=== PATIENT | female | born 1955 | race Caucasian/White ===

== ENCOUNTER → 2017-03-18 | Outpatient (CLI) | payer MEDICARE, OTHER ==
[~2017-03-18] MED LIST: CYCL-331 PO; ESOM40CA25 PO; ESTR2TAB4 PO; LEVO5TAB29 PO; MELO15TA6 PO; PRAZ2CAP PO; SERT25TA PO
[2017-03-18 13:49] LABS: BASO % 0 % (0-3); EOS # 0.1 x10^3/uL (0.0-0.7); EOS % 1 % (0-3); HEMATOCRIT 43.2 % (36.0-47.0); HEMOGLOBIN 14.6 g/dL (12.0-15.5); LYMPH # 3.8 x10^3/uL (1.0-4.8); LYMPH % 40 % (24-48); MEAN CORPUSCULAR HEMOGLOBIN 33 pg (25-35); MEAN CORPUSCULAR HGB CONC 34 g/dL (31-37); MEAN CORPUSCULAR VOLUME 98 fL (79-100); MONO # 0.4 x10^3/uL (0.0-1.1); MONO % 4 % (0-9); NEUT # 5.3 x10^3uL (1.8-7.7); NEUT % 55 % (31-73); PLATELET COUNT 180 x10^3/uL (140-400); RED BLOOD COUNT 4.41 x10^6/uL (3.50-5.40); RED CELL DISTRIBUTION WIDTH 12.6 % (11.5-14.5); WHITE BLOOD COUNT 9.6 x10^3/uL (4.0-11.0)
== END | disposition home or self-care (01) ==
LOC: LAB 12:33
PROVIDERS: ATTEND Anesthesiology Pain Medicine
DX: Z01.818 Encounter for other preprocedural examination (principal)
CPT/HCPCS: 36415; 85027

== ENCOUNTER → 2017-06-30 | Outpatient (CLI) | payer MEDICARE, OTHER ==
--- NOTE | 2017-06-30 11:30 | RAD ---
Exam performed:3 views bilateral shoulder a Indication:Bilateral shoulder pain, greater on the right, no known injury Date of service:06/30/17. Comparison:None available Findings :AP radiographs of the shoulder in internal and external rotation as well as a Y-view reveal degenerative changes involving bilateral acromioclavicular joints. The glenohumeral joints are preserved. No acute fracture or dislocation is seen. The articular margins are smooth. 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 No acute abnormality seen.
--- NOTE | 2017-06-30 11:31 | RAD ---
Indication sacral pain for several months. No known injury. 2 AP views of the sacrococcyx were obtained. A lateral view was also obtained. There is suspect bony demineralization. No definite fracture is seen. If further evaluation for potential occult fracture is warranted an MRI examination or bone scan could be performed.
== END | disposition home or self-care (01) ==
LOC: DXRADRC 10:59
PROVIDERS: ATTEND Physician Assistant Medical
DX: M19.011 Primary osteoarthritis, right shoulder (principal); M19.012 Primary osteoarthritis, left shoulder; M53.3 Sacrococcygeal disorders, not elsewhere classified
CPT/HCPCS: 72220; 73030

== ENCOUNTER → 2018-12-31 | Outpatient (CLI) | payer MEDICARE, OTHER ==
--- NOTE | 2018-12-31 09:46 | RAD ---
PQRS Compliance Statement: One or more of the following individualized dose reduction techniques were utilized for this examination: 1. Automated exposure control 2. Adjustment of the mA and/or kV according to patient size 3. Use of iterative reconstruction technique EXAMINATION: CT of the paranasal sinuses without contrast 12/31/2018 8:03 AM HISTORY: Sinus pressure with congestion and history of surgery. TECHNIQUE: CT of the paranasal sinuses was performed using sinus protocol without contrast COMPARISON: None available FINDINGS: Review of the topogram demonstrates no abnormalities. Postoperative changes are identified from maxillary decompression. There is a small mucus retention cyst in the left maxillary sinus The frontal sinuses are normal. The ethmoid sinuses are normal. The sphenoid sinuses are normal. Nasal septum is minimally deviated to the left. The nasal septum is at midline. No areas of bony erosion are identified. The orbits are normal. Limited view of the frontal lobes is normal. IMPRESSION: Postoperative changes are identified from maxillary decompression. There is a small mucus retention cyst in the left maxillary sinus. Electronically signed by: Soo Topete MD (12/31/2018 9:43 AM) [id number]
== END | disposition home or self-care (01) ==
LOC: CT 07:54
PROVIDERS: ATTEND Registered Nurse
DX: J34.1 Cyst and mucocele of nose and nasal sinus (principal)
CPT/HCPCS: 70486

== ENCOUNTER → 2019-06-15 | Outpatient (CLI) | payer MEDICARE, OTHER ==
--- NOTE | 2019-06-15 15:45 | RAD ---
EXAM: Chest, 2 views. HISTORY: Chronic cough. COMPARISON: 12/04/2014 FINDINGS: 2 views of the chest are obtained. There is no infiltrate, pleural effusion or pneumothorax. The heart is normal in size. There are dorsal column stimulator leads overlying the thoracic spine. There is cervical spinal fusion instrumentation. IMPRESSION: No acute pulmonary finding. Electronically signed by: Marie Morris MD (06/15/2019 3:42 PM) [place] [id number]
--- NOTE | 2019-06-15 15:54 | RAD ---
EXAM: Cervical spine, 5 views. HISTORY: Pain. COMPARISON: None. FINDINGS: 5 views of the cervical spine are obtained. There is instrumented intraspinal fusion and interbody fusion at C5-C7. There is no listhesis. The vertebral bodies are normal in height. There is anterior inferior endplate remodeling at C3-4. There is mild facet arthropathy at multiple levels. There is partial visualization of a dorsal column stimulator overlying the upper thoracic spine. IMPRESSION: 1. Instrumented fusion at C5-C7. 2. Mild multilevel degenerative change, described above. Electronically signed by: Marie Morris MD (06/15/2019 3:51 PM) [place] [id number]
== END | disposition home or self-care (01) ==
LOC: DXRAD 12:45
PROVIDERS: ATTEND Physician Assistant Medical
DX: M47.812 Spondylosis without myelopathy or radiculopathy, cervical region (principal); M46.82 Other specified inflammatory spondylopathies, cervical region; R05 Cough; Z98.1 Arthrodesis status
CPT/HCPCS: 71046; 72050

== ENCOUNTER → 2019-08-03 | Outpatient (CLI) | payer MEDICARE, OTHER ==
[~2019-08-03] MED LIST changes: +IOHEXOL 240 MG/ML 50ML VIAL. ONE; +IOHEXOL 300 MG/ML 75 ML VIAL. IV ONE
--- NOTE | 2019-08-03 15:35 | RAD ---
Examination: CT ABD PELV W/ORAL IV CONTRAST History: Right lower quadrant pain, diarrhea Comparison/Correlation: 10/10/2014 CT abdomen and pelvis without with contrast Findings: Axial images of the abdomen and pelvis were obtained following IV and oral contrast. Sagittal and coronal reformatted images were provided. Mild gravity dependent atelectasis is present. Cholecystectomy noted. Liver, spleen, pancreas, and right adrenal gland are normal. Left adrenal gland 1.1 cm diameter nodule is present similar to the prior exam. Kidneys unremarkable. Urinary bladder is unremarkable. Moderate quantity of stool in the colon noted. No extraluminal gas. No bowel obstruction. No inflammatory change about the cecum. No inflammatory change about the cecum. Hysterectomy noted. Spinal stimulator device is present with associated lead. No acute bony process. Impression: No acute inflammatory process or mass. No obstruction. PQRS Compliance Statement: One or more of the following individualized dose reduction techniques were utilized for this examination: 1. Automated exposure control 2. Adjustment of the mA and/or kV according to patient size 3. Use of iterative reconstruction technique Electronically signed by: Mark Anderson MD (08/03/2019 3:31 PM) [facility]
== END | disposition home or self-care (01) ==
LOC: CT 11:52
PROVIDERS: ATTEND Physician Assistant Medical
DX: E27.8 Other specified disorders of adrenal gland (principal); J98.11 Atelectasis; Z90.49 Acquired absence of other specified parts of digestive tract; Z90.710 Acquired absence of both cervix and uterus
CPT/HCPCS: 74177; Q9967

== ENCOUNTER → 2019-09-08 | Outpatient (CLI) | payer MEDICARE, OTHER ==
[~2019-09-08] MED LIST changes: -IOHEXOL 240 MG/ML 50ML VIAL. ONE; -IOHEXOL 300 MG/ML 75 ML VIAL. IV ONE
--- NOTE | 2019-09-08 14:53 | RAD ---
SMALL BOWEL SERIES History: Right lower quadrant abdominal pain Comparison: August 03, 2019 CT exam Findings: Small bowel examination was performed. There has been cholecystectomy. There are thoracic spinal stimulator leads and device. There is a nonobstructive bowel gas pattern. There was fairly rapid transit of contrast through the small bowel, seen in the ascending colon at about 20 minutes. No significant flow-limiting stricture is identified. Overall small bowel caliber is within normal limits. Impression: 1. There was nonspecific fairly rapid transit of contrast through the small bowel, seen in the ascending colon at 20 minutes. Electronically signed by: Estiven Pinedo MD (09/08/2019 2:51 PM) [id number]
== END | disposition home or self-care (01) ==
LOC: RAD 08:19
PROVIDERS: ATTEND Internal Medicine Gastroenterology
DX: R10.31 Right lower quadrant pain (principal)
CPT/HCPCS: 74250

== ENCOUNTER → 2019-10-31 | Outpatient (CLI) | payer MEDICARE, OTHER ==
[2019-10-31 09:01] LABS: BASO % 0 % (0-3); EOS # 0.1 x10^3/uL (0.0-0.7); EOS % 2 % (0-3); HEMATOCRIT 48.4 % (36.0-47.0); LYMPH # 2.5 x10^3/uL (1.0-4.8); LYMPH % 42 % (24-48); MEAN CORPUSCULAR HEMOGLOBIN 33 pg (25-35); MEAN CORPUSCULAR HGB CONC 33 g/dL (31-37); MEAN CORPUSCULAR VOLUME 101 fL (79-100); MONO # 0.3 x10^3/uL (0.0-1.1); MONO % 6 % (0-9); NEUT % 50 % (31-73); PLATELET COUNT 235 x10^3/uL (140-400); RED BLOOD COUNT 4.81 x10^6/uL (3.50-5.40); RED CELL DISTRIBUTION WIDTH 12.8 % (11.5-14.5)
[2019-10-31 09:14] LABS: ALBUMIN 3.8 g/dL (3.4-5.0); CALCIUM 8.5 mg/dL (8.5-10.1); GFR 56.2; POTASSIUM 3.9 mmol/L (3.5-5.1); TOTAL BILIRUBIN 0.3 mg/dL (0.2-1.0); TOTAL PROTEIN 7.6 g/dL (6.4-8.2)
== END | disposition home or self-care (01) ==
LOC: LAB 07:51
PROVIDERS: ATTEND Clinical Nurse Specialist Psychiatric/Mental Health, Adult
DX: Z79.899 Other long term (current) drug therapy (principal)
CPT/HCPCS: 36415; 80053; 85025

== ENCOUNTER → 2019-10-31 | Outpatient (CLI) | payer MEDICARE, OTHER ==
--- NOTE | 2019-10-31 08:25 | EKG ---
[address] [address] Test Date: 2019-10-31 Test Time: 08:14:04 Pat Name: TANYA TRIPP Department: Room: Gender: F Ambulatory Care Coordinator: : 1955 Requested By: MAHIN PLASENCIA Order Number: [id number] Reading MD: Measurements Intervals [place] Rate: 73 P: 34 IA: 148 QRS: 8 QRSD: 80 T: 20 QT: 402 QTc: 447 Interpretive Statements SINUS RHYTHM QRS(T) CONTOUR ABNORMALITY CONSIDER ANTEROLATERAL MYOCARDIAL DAMAGE POSSIBLY ABNORMAL ECG RI6.01 No previous ECG available for comparison
[2019-10-31 09:03] LABS: BASO % 0 % (0-3); EOS # 0.1 x10^3/uL (0.0-0.7); EOS % 2 % (0-3); HEMATOCRIT 48.4 % (36.0-47.0); LYMPH # 2.5 x10^3/uL (1.0-4.8); LYMPH % 42 % (24-48); MEAN CORPUSCULAR HEMOGLOBIN 33 pg (25-35); MEAN CORPUSCULAR HGB CONC 33 g/dL (31-37); MEAN CORPUSCULAR VOLUME 101 fL (79-100); MONO # 0.3 x10^3/uL (0.0-1.1); MONO % 6 % (0-9); NEUT % 50 % (31-73); PLATELET COUNT 235 x10^3/uL (140-400); RED BLOOD COUNT 4.81 x10^6/uL (3.50-5.40); RED CELL DISTRIBUTION WIDTH 12.8 % (11.5-14.5)
[2019-10-31 09:12] LABS: BACTERIA,URINE FEW /HPF (0-FEW); BILIRUBIN,URINE NEG (NEG); CLARITY,URINE HAZY; COLOR,URINE YELLOW; GLUCOSE,URINE NEG (NEG); HYALINE CASTS, URINE OCC /HPF; NITRITE,URINE NEG (NEG); SQUAMOUS EPITHELIAL CELL,UR FEW /LPF; UROBILINOGEN,URINE 0.2 mg/dL (0.2 mg/dL)
[2019-10-31 09:13] LABS: GRANULAR CASTS,URINE OCC /HPF
[2019-10-31 09:24] LABS: CALCIUM 8.6 mg/dL (8.5-10.1); GFR 56.2; POTASSIUM 3.9 mmol/L (3.5-5.1)
== END | disposition home or self-care (01) ==
LOC: LAB 07:45
PROVIDERS: ATTEND Anesthesiology Pain Medicine
DX: Z01.818 Encounter for other preprocedural examination (principal); R94.31 Abnormal electrocardiogram [ECG] [EKG]
CPT/HCPCS: 36415; 80048; 81001; 85025; 85610; 87641; 93005

== ENCOUNTER → 2020-05-18 | Outpatient (CLI) | payer MEDICARE, OTHER ==
--- NOTE | 2020-05-18 10:48 | RAD ---
EXAM: Abdomen and pelvis CT without intravenous contrast. HISTORY: Right flank pain. Hematuria. TECHNIQUE: Computed tomographic images of the abdomen and pelvis were obtained without contrast. Multiplanar reformatting was performed. *One or more of the following individualized dose reduction techniques were utilized for this examination: 1. Automated exposure control. 2. Adjustment of the mA and/or kV according to patient size. 3. Use of iterative reconstruction technique. COMPARISON: 08/03/2019. FINDINGS: Evaluation of the lower thorax demonstrates posterior dependent and basilar atelectasis. There is no infiltrate or pleural effusion. The heart is normal in size. No hepatic lesion is seen. The gallbladder is surgically absent. The pancreas and spleen are unremarkable. There is nodular thickening of the left adrenal gland. No discrete nodule is seen. There is no hydronephrosis. There are 2 mm and 1 mm obstructing stones within the inferior left kidney. There is slight deformation of the bladder base due to mild enlargement of the prostate. There is distal colonic diverticulosis. There is no diverticulitis. There is no bowel obstruction. The aorta is normal in caliber. There is no lymphadenopathy. There are degenerative changes throughout the spine. There is a spinal stimulator extending cephalad beyond the [id number]. There is a transitional lumbosacral segment. This considered a lumbarized S1 segment. There is grade 1 anterolisthesis of L5 on S1. IMPRESSION: 1. Tiny nonobstructing left renal stones. There is no evidence of contralateral nephrolithiasis or hydronephrosis. 2. Colonic diverticulosis. Electronically signed by: Marie Morris MD (05/18/2020 10:45 AM) [facility]
== END | disposition home or self-care (01) ==
LOC: CT 10:13
PROVIDERS: ATTEND Physician Assistant
DX: K57.30 Diverticulosis of large intestine without perforation or abscess without bleeding (principal); N20.0 Calculus of kidney; R31.9 Hematuria, unspecified; J98.11 Atelectasis
CPT/HCPCS: 74176

== ENCOUNTER → 2020-05-22 | Outpatient (CLI) | payer MEDICARE, OTHER ==
--- NOTE | 2020-05-22 17:46 | RAD ---
PROCEDURE: THORACIC SPINE 3V, RIBS RIGHT CLINICAL INDICATION / HISTORY: Reason: THORACIC BACK PAIN / Spl. Instructions: / History: . TECHNIQUE: Two view thoracic spine series. COMPARISON: None FINDINGS: AP and lateral of the thoracic spine demonstrates no fracture, dislocation, or skeletal lesion. Mild midthoracic spinal disk disease is seen. There is no paraspinous abnormality. Spinal stimulator electrodes are present terminating at the approximate T3 level from an approximate T12-L1 entry site. IMPRESSION: Mild midthoracic spinal disc degenerative change. Otherwise unremarkable T-spine x-rays. Right RIBS 3 views INDICATION: Thoracic back pain and right rib pain FINDINGS: 3 views of the right ribs show no fracture, aggressive osseous lesions or osseous malalignment. Soft tissues are unremarkable. No pleural effusion or pneumothorax identified in the visualized right hemithorax. IMPRESSION: No acute osseous abnormality in the right rib x-ray series. Electronically signed by: Leticia Spicer MD (05/22/2020 5:43 PM) [id number]
== END | disposition home or self-care (01) ==
LOC: RAD 15:15
PROVIDERS: ATTEND Physician Assistant
DX: M47.814 Spondylosis without myelopathy or radiculopathy, thoracic region (principal); R07.82 Intercostal pain
CPT/HCPCS: 71100; 72072

== ENCOUNTER 2020-11-14 11:39 | Emergency (ER) | payer MEDICARE, OTHER ==
[~2020-11-14] VITALS: Ht 144.8 cm; Wt 44.0 kg
[2020-11-14 11:52] VITALS: BP 112/56
[2020-11-14] MEDS ORDERED: ONDANSETRON ODT 4 MG TAB.RAPDIS PO ONE (12:15)
[2020-11-14] MEDS ORDERED: KETOROLAC 15 MG/ML VIAL. IM ONE (12:45)
--- NOTE | 2020-11-14 12:54 | PHYS DOC ---
Past History Past Medical History: Anxiety, Dementia, Depression, Other Additional Past Medical Histor: CHRONIC PAIN Past Surgical History: Cholecystectomy, Hysterectomy Additional Past Surgical Histo: BILATERAL ROTATOR, NERUO IMPLANT DEVICE, NECK/BACK Alcohol Use: None General Adult EDM: Chief Complaint: SHOULDER INJURY HPI: HPI: Patient is a 65 old female who presents with left shoulder pain. Patient reports that she had surgery on 09/07 for her right shoulder and has been going to PT. Patient states "I think that I have overcompensated and I am now having pain in my left shoulder". "I keep hearing a popping sound". Patient has full range of motion of left arm. Patient reports taking an oxycodone this morning at 8 AM with little relief. Patient is reporting pain and nausea due to the pain meds. Patient has pain medication at home that she was prescribed from Dr. Ortiz. Patient has an appointment on Thursday for a follow-up. Patient has a history of chronic pain, anxiety, depression, COPD. Review of Systems: Review of Systems: Constitutional: Denies fever or chills Eyes: Denies change in visual acuity HENT: Denies nasal congestion or sore throat Respiratory: Denies cough or shortness of breath Cardiovascular: Denies chest pain or edema GI: Denies abdominal pain, nausea, vomiting, bloody stools or diarrhea : Denies dysuria Musculoskeletal: Denies back pain, reports left shoulder pain Integument: Denies rash Neurologic: Denies headache, focal weakness or sensory changes Endocrine: Denies polyuria or polydipsia Lymphatic: Denies swollen glands Psychiatric: Denies depression or anxiety Current Medications: Current Meds: Current Medications Medications (Trade) Dose Ordered Sig/[facility] Start Time Stop Time Status Last Admin Dose Admin Ondansetron HCl (Zofran Odt) 4 mg 1X ONCE 11/14/20 12:15 11/14/20 12:16 DC 11/14/20 12:16 4 MG Allergies: Allergies: Allergies Coded Allergies Type Severity Reaction Last Updated Verified varenicline Allergy Unknown 10/10/14 Yes Physical Exam: PE: Constitutional: Well developed, well nourished, no acute distress, non-toxic appearance. [] HENT: Normocephalic, atraumatic, bilateral external ears normal, oropharynx moist, no oral exudates, nose normal. [] Eyes: PERRLA, EOMI, conjunctiva normal, no discharge. [] Neck: Normal range of motion, no tenderness, supple, no stridor. [] Cardiovascular:Heart rate regular rhythm, no murmur [] Lungs & Thorax: Bilateral breath sounds clear to auscultation [] Abdomen: Bowel sounds normal, soft, no tenderness, no masses, no pulsatile masses. [] Skin: Warm, dry, no erythema, no rash. [] Back: No tenderness, no CVA tenderness. [] Extremities: Left shoulder tenderness, no cyanosis, no clubbing, ROM intact, no edema Neurologic: Alert and oriented X 3, normal motor function, normal sensory function, no focal deficits noted, radial pulses intact, cap refill less than 3 seconds Psychologic: Affect normal, judgement normal, mood normal. [] Current Patient Data: Vital Signs: Vital Signs Date Time Temp Pulse Resp B/P (MAP) Pulse Ox O2 Delivery O2 Flow Rate FiO2 11/14/20 11:52 97.9 86 20 112/56 (74) 95 Room Air EKG: EKG: [] Radiology/Procedures: Radiology/Procedures: [] Heart Score: Risk Factors: Risk Factors: DM, Current or recent (<one month) smoker, HTN, HLP, family history of CAD, obesity. Risk Scores: Score 0 - 3: 2.5% MACE over next 6 weeks - Discharge Home Score 4 - 6: 20.3% MACE over next 6 weeks - Admit for Clinical Observation Score 7 - 10: 72.7% MACE over next 6 weeks - Early Invasive Strategies Course & Med Decision Making: Course & Med Decision Making Pertinent Labs and Imaging studies reviewed. (See chart for details) []Patient is a 65 old female who presents with left shoulder pain. Patient reports that she had surgery on 09/07 for her right shoulder and has been going to PT. Patient states "I think that I have overcompensated and I am now having pain in my left shoulder". "I keep hearing a popping sound". Patient has full range of motion of left arm. Patient reports taking an oxycodone this morning at 8 AM with little relief. Patient is reporting pain and nausea due to the pain meds. Patient has pain medication at home that she was prescribed from Dr. Ortiz. Patient has an appointment on Thursday for a follow-up. Patient has a history of chronic pain, anxiety, depression, COPD. Left shoulder x-ray ordered. Zofran given for nausea. Toradol given for pain. Patient states that she drove to the emergency room on her own. Explained to patient I am unable to give her any narcotics since she is driving. Patient is okay with this plan. Kan Disclaimer: Kan Disclaimer: This electronic medical record was generated, in whole or in part, using a voice recognition dictation system. Departure Departure: Impression: Primary Impression: Shoulder pain Qualified Codes: M25.512 - Pain in left shoulder Disposition: 01 DC HOME SELF CARE/HOMELESS Condition: STABLE Referrals: ADRIANA MEZA (PCP) Patient Instructions: Shoulder Pain, [id number] Additional Instructions: You were seen in the emergency room today for left shoulder pain. Your shoulder x-ray does not show any acute abnormalities. Continue to rest your arm, ice to affected shoulder, and elevate to help with discomfort and swelling. You can continue to take the pain medication you were prescribed from Dr. Burt and also ibuprofen. Please return to the emergency room with worsening symptoms or concerns. SHON TALBERT APRN Nov 14, 2020 12:54
--- NOTE | 2020-11-14 15:44 | RAD ---
PROCEDURE: XR SHOULDER_LEFT 2+ VIEWS STUDY DATE: 11/14/2020 CLINICAL INDICATION / HISTORY: Reason: left shoulder pain / Spl. Instructions: / History: . TECHNIQUE: AP internal and external rotation views with a Y- view were obtained. COMPARISON: Bilateral shoulder x-rays of 06/30/2017 FINDINGS: No fracture, dislocation or bone destruction is identified. There are moderate degenerative changes at the left AC joint, similar to prior. Subchondral cysts are evident on the superior glenoi d rim, consistent with glenohumeral degenerative change. No calcifications are seen in relation to th e rotator cuff insertion. There are incidental stable ACDF surgical changes in the lower cervical spi ne and interval spinal stimulator electrodes in the upper thoracic spine. IMPRESSION: No fracture or malalignment but degenerative changes in the glenohumeral joint and acrom ioclavicular joint are present. Electronically signed by: Leticia Spicer MD (11/14/2020 3:42 PM) [id number]
== END 2020-11-14 15:59 | disposition home or self-care (01) ==
LOC: ER 11:39
DX: M25.512 Pain in left shoulder (principal); F41.9 Anxiety disorder, unspecified; F03.90 Unspecified dementia, unspecified severity, without behavioral disturbance, psychotic disturbance, mood disturbance, and anxiety; F32.9 Major depressive disorder, single episode, unspecified; G89.29 Other chronic pain; Z88.1 Allergy status to other antibiotic agents
CPT/HCPCS: 73030; 96372; 99283; J1885; Q0162

== ENCOUNTER → 2020-11-19 | Outpatient (CLI) | payer MEDICARE, OTHER ==
[2020-11-14 11:52] VITALS: BP 112/56
[2020-11-19 14:51] LABS: ALBUMIN 3.7 g/dL (3.4-5.0); ALBUMIN/GLOBULIN RATIO 1.1 (1.0-1.7); CALCIUM 8.6 mg/dL (8.5-10.1); CREATININE 0.8 mg/dL (0.6-1.0); GFR 72.4; POTASSIUM 3.7 mmol/L (3.5-5.1); TOTAL BILIRUBIN 0.2 mg/dL (0.2-1.0); TOTAL PROTEIN 7.1 g/dL (6.4-8.2)
[2020-11-19 14:54] LABS: BASO % 0 % (0-3); EOS # 0.1 x10^3/uL (0.0-0.7); EOS % 1 % (0-3); HEMATOCRIT 42.4 % (36.0-47.0); HEMOGLOBIN 14.1 g/dL (12.0-15.5); LYMPH # 2.2 x10^3/uL (1.0-4.8); LYMPH % 31 % (24-48); MEAN CORPUSCULAR HEMOGLOBIN 34 pg (25-35); MEAN CORPUSCULAR HGB CONC 33 g/dL (31-37); MEAN CORPUSCULAR VOLUME 102 fL (79-100); MONO # 0.3 x10^3/uL (0.0-1.1); MONO % 5 % (0-9); NEUT # 4.4 x10^3uL (1.8-7.7); NEUT % 63 % (31-73); PLATELET COUNT 181 x10^3/uL (140-400); RED BLOOD COUNT 4.17 x10^6/uL (3.50-5.40); RED CELL DISTRIBUTION WIDTH 12.5 % (11.5-14.5)
== END ==
LOC: LAB 14:11
PROVIDERS: ATTEND Internal Medicine Gastroenterology
DX: R10.84 Generalized abdominal pain (principal); R63.4 Abnormal weight loss
CPT/HCPCS: 36415; 80053; 85025

== ENCOUNTER → 2020-11-22 | Outpatient (CLI) | payer MEDICARE, OTHER ==
[2020-11-14 11:52] VITALS: BP 112/56
--- NOTE | 2020-11-22 12:34 | RAD ---
EXAM: ABDOMINAL ULTRASOUND. HISTORY: Weight loss and abdominal pain.. COMPARISON: Noncontrast abdomen and pelvis CT of 05/18/2020. FINDINGS: Sonographic evaluation of the abdomen was performed. The liver appears normal in parenchymal echotexture. There are no focal lesions. The spleen measures 9.2 cm. Patent, normal directional flow in the main portal vein. The gallbladder is surgically absent. The common duct measures 4 mm. The visualized portions of the p ancreas reveal no abnormality. The right kidney measures 9.0 x 4.4 x 5.3 cm. Cortical thickness and echogenicity are preserved. Ther e is no hydronephrosis. The left kidney measures 9.0 x 5.2 x 5.5 cm. Cortical thickness and echogenic ity are preserved. There is no hydronephrosis. The visualized portions of the abdominal aorta and inferior vena cava are grossly patent and normal i n caliber. IMPRESSION: 1. Unremarkable postcholecystectomy abdomen ultrasound. No specific cause for abdominal pain and weig ht loss seen. Electronically signed by: Leticia Spicer MD (11/22/2020 12:32 PM) [id number]
== END ==
LOC: US 08:50
PROVIDERS: ATTEND Internal Medicine Gastroenterology
DX: R63.4 Abnormal weight loss (principal); R10.9 Unspecified abdominal pain
CPT/HCPCS: 76700

== ENCOUNTER → 2020-12-21 | Outpatient (CLI) | payer MEDICARE, OTHER ==
--- NOTE | 2020-12-21 16:56 | RAD ---
XR RIBS 2 VIEWS LT, XR CHEST 2V History: Reason: CHEST PAIN / Spl. Instructions: / History: Technique: PA and lateral view of the chest. 3 views of the left ribs. Comparison: June 15, 2019 Findings: No consolidation or pleural effusion. No pneumothorax. Normal heart size. Postoperative changes cervi elba spine. Spinal stimulator noted. Surgical clips right upper quadrant. Right distal clavicular resorption. No displaced rib fractures. Impression: 1. No acute cardiopulmonary process. No displaced rib fractures. 2. Right distal clavicular resorption, may relate to prior trauma or rheumatoid arthritis. Electronically signed by: Seven Clemente DO (12/21/2020 4:54 PM) [id number]
== END ==
LOC: RAD 09:37
PROVIDERS: ATTEND Orthopaedic Surgery
DX: R07.81 Pleurodynia (principal); R07.9 Chest pain, unspecified
CPT/HCPCS: 71046; 71100

== ENCOUNTER → 2021-01-29 | Outpatient (CLI) | payer MEDICARE, OTHER ==
--- NOTE | 2021-01-29 13:31 | RAD ---
EXAM: DUAL ENERGY X-RAY ABSORPTIOMETRY (DEXA). HISTORY: Postmenopausal screening. FINDINGS: The lowest measured T-score is -2.0 in the right femur, based on a bone mineral density of 0.712 g/cm^2. Refer to the worksheets for full detail. No comparison examinations are available. IMPRESSION: 1. Low bone mass. Bone mineral density yields a T-score between -1.0 and -2.5. Fracture risk is incre ased. 2. FRAX report: Not calculated. METHODOLOGY: Dual energy x-ray absorptiometry was performed to measure bone mineral density. The foll owing analysis is based on the 2019 Official Positions of the International Society for Clinical Dens itometry: Measurements of the hips and the average of L1-L4 are preferred. When the spine and/or hip cannot be feasibly measured or interpreted, or in the setting of hyperparathyroidism, distal radial bone minera l density may be measured. The lumbar spine T-score is based on the average bone mineral density of L1-L4. In the setting of art ifact or anatomic abnormality, some lumbar levels may be excluded, and the remaining levels used for calculation. A single lumbar level is not used for diagnosis, and if only a single level is available for assessment, another anatomic site will be used to assign a diagnosis. The hip T-score is based on the bone mineral density measurement of the femoral neck or total proxima l femur of either side, whichever is lowest. Bilateral mean values are not used for diagnosis. The forearm T-score is derived from 33% of the distal radius of the nondominant forearm. Electronically signed by: Marie Morris MD (01/29/2021 1:29 PM) [facility]
--- NOTE | 2021-01-29 16:17 | RAD ---
CT of the chest without contrast: Clinical History: Screening for possible pulmonary nodules. Low energy axial helical images of the chest were obtained without contrast. Findings: The lungs are hyperinflated. There is mild diffuse emphysematous changes. Mild patchy opacities poste riorly is consistent dependent changes. There is a few small less than 3 mm pulmonary nodules. There is no mediastinal or hilar lymphadenopathy. Impression: No suspicious findings. ACR lung rads 1: Negative. PQRS Compliance Statement: One or more of the following individualized dose reduction techniques were utilized for this examinat ion: 1. Automated exposure control 2. Adjustment of the mA and/or kV according to patient size 3. Use of iterative reconstruction technique Electronically signed by: Vinicio Julian III, MD (01/29/2021 4:15 PM) [id number]
--- NOTE | 2021-01-30 10:03 | RAD ---
History: Routine Screening 3-D DIGITAL MAMMOGRAPHY 3-D digital breast tomosynthesis images of both breasts in the CC and MLO projections were performed. Computer aided detection (CAD) was utilized. Previous: none. New baseline study. The breast is almost entirely fatty (Category A density). There is a group of calcifications in assoc iation with a nodular density of the anterior lateral upper aspect of the left breast. More anteriorl y within the retroareolar region of the left breast is another small group of calcifications. Recomme nd focal magnification compression views of the left breast in the CC and 90 degree projections. Also recommend a left breast sonogram to evaluate the nodular density associated with the calcifications within the upper outer quadrant of the left breast. The right breast is unremarkable. IMPRESSION: Calcifications and nodular density of the left breast. Additional imaging is needed.. Pat ient information was entered into the reminder system with a target due date for the next imaging st ud of now. BI-RADS Category 0 A, incomplete. Further imaging is needed. A mammogram does not have 100% sensitivity and therefore a negative imaging study should not delay fu rther work up of any clinically suspicious abnormality. If your mammogram demonstrates that you have dense breast tissue, which could hide abnormalities, and if you have other risk factors for breast cancer that have been identified, you might benefit from s upplemental screening tests that may be suggested by your ordering physician. Dense breast tissue, i n and of itself, is a relatively common condition. This information is not provided to cause undue c oncern, but rather to raise your awareness and to promote discussion with your physician regarding th e presence of other risk factors, in addition to dense breast tissue. A report of your mammography re sults will be sent to you and your physician. You should contact your physician if you have any ques tions or concerns regarding this report. "Our facility is accredited by the [employer] Mammography Program." Electronically signed by: Sven Samaniego MD (01/30/2021 10:01 AM) [facility]
== END ==
LOC: CT 12:28
PROVIDERS: ATTEND Family Medicine
DX: Z12.31 Encounter for screening mammogram for malignant neoplasm of breast (principal); Z00.00 Encounter for general adult medical examination without abnormal findings; Z12.2 Encounter for screening for malignant neoplasm of respiratory organs; N64.89 Other specified disorders of breast; M81.0 Age-related osteoporosis without current pathological fracture; Z72.0 Tobacco use
CPT/HCPCS: 71271; 77063; 77067; 77080

== ENCOUNTER → 2021-02-14 | Outpatient (CLI) | payer MEDICARE, OTHER ==
--- NOTE | 2021-02-14 09:45 | RAD ---
EXAM: Chest, 2 views. HISTORY: Cough. COMPARISON: 12/21/2020 FINDINGS: 2 views of chest are obtained. There is stable bilateral lower lobe interstitial opacity li katie due to atelectasis or chronic interstitial change. There is no consolidated, pleural fusion or p neumothorax. The heart is normal in size. There are dorsal column stimulator leads overlying the uppe r thoracic spine. There is cervical spinal fusion instrumentation. There has been incidental distal r ight clavicular resection. IMPRESSION: Stable suspected bilateral lower lobe atelectasis or chronic interstitial changes. Electronically signed by: Marie Morris MD (02/14/2021 9:43 AM) [id number]
== END ==
LOC: RAD 09:00
PROVIDERS: ATTEND Family Medicine
DX: R05 Cough (principal)
CPT/HCPCS: 71046

== ENCOUNTER → 2021-02-19 | Outpatient (CLI) | payer MEDICARE, OTHER ==
--- NOTE | 2021-02-19 18:12 | RAD ---
EXAMINATION: US BREAST LT, MG DIAGNOSTICUNILAT MAMMO History: Recalled from screening mammogram for calcifications in possible mass in the left breast. Comparison: Screening mammogram 01/29/2021. Technique: Magnification CC and ML views and full field ML view of the left breast was obtained. Subs equently, ultrasound of the left breast was obtained in the area of concern. Findings: Mammogram: There are scattered areas of fibroglandular density. The group of calcifications at approx imately 2:00 2.5 cm posterior to the nipple have a fine pleomorphic morphology. There is a second edson up of calcifications with similar morphology at 6:00 in the subareolar region. Ultrasound: There is a hypoechoic mass with irregular margins at 2:00 4 cm from the nipple measuring 7 x 6 x 4 mm. This is wider than tall. This has some echogenic foci that likely correspond with the c alcifications on mammogram. There is an adjacent 3 x 3 x 2 mm round hypoechoic nodule at 3:00 in the retroareolar region. No mass at 6:00 in the retroareolar region. There are small lymph nodes with nor mal morphology in the right axilla. IMPRESSION: 1. Suspicious calcifications at 2:00, 2.5 cm from the nipple and at 6:00 in the subareolar region. 2. 7 mm suspicious mass at 2:00, 4 cm from the nipple. This likely contains the suspicious calcificat ions seen at 2:00 on mammogram. Recommend ultrasound-guided biopsy of this mass. Based on pathology r esults, additional stereotactic guided biopsies of the calcifications at 2:00 and 6:00 may be needed. BI-RADS category 4: Suspicious. Ultrasound guided biopsy of the mass at 2:00 4 cm from the nipple in the left breast is recommended. Mammography is the most sensitive method for finding small breast cancers, but it does not detect the m all and is not a substitute for careful clinical examination. A negative mammogram does not negate a clinically suspicious finding and should not result in delay in biopsying a clinically suspicious a bnormality. "Our facility is accredited by the [employer] Mammography [employer]." Electronically signed by: Adriana Godoy MD (02/19/2021 6:09 PM) [id number]
== END ==
LOC: MAMMO 12:27
PROVIDERS: ATTEND Family Medicine
DX: R92.1 Mammographic calcification found on diagnostic imaging of breast (principal)
CPT/HCPCS: 76641; 77065

== ENCOUNTER → 2021-04-23 | Outpatient (CLI) | payer MEDICARE, OTHER ==
--- NOTE | 2021-04-23 12:40 | RAD ---
EXAM: Right wrist, 3 views. HISTORY: Pain. COMPARISON: None. FINDINGS: 3 views of the right wrist are obtained. There is no acute fracture, dislocation or subluxa tion. The alignment and joint spaces are unremarkable. IMPRESSION: No acute osseous finding. Electronically signed by: Marie Morris MD (04/23/2021 12:38 PM) [id number]
== END ==
LOC: RAD 12:04
PROVIDERS: ATTEND Family Medicine
DX: M25.531 Pain in right wrist (principal)
CPT/HCPCS: 73110

== ENCOUNTER → 2021-09-18 | Outpatient (CLI) | payer MEDICARE, OTHER ==
[~2021-09-18] MED LIST changes: -CYCL-331 PO; +CYCL10TA19 PO
--- NOTE | 2021-09-18 14:50 | RAD ---
EXAM: Left breast diagnostic mammogram with tomosynthesis; left breast sonogram. HISTORY: 66-year-old female presents for evaluation status post benign left breast biopsy. The patien t reports breast pain at the 3:00 position. TECHNIQUE: Full-field digital craniocaudal and mediolateral oblique 2D and 3D tomosynthesis images of the left breast are obtained for evaluation. Computer aided detection was applied. Sonographic imagi ng of the left breast targeted to the site of reported pain was performed. COMPARISON: 02/19/2021, 01/29/2021 BREAST PARENCHYMAL DENSITY: Level B - Scattered fibroglandular densities. FINDINGS: There is an S-shaped biopsy clip with adjacent nodular asymmetry and clustered microcalcifi cations within the anterior 2:00 position of the left breast. This corresponds with the site of prior biopsy proven stromal fibrosis, duct ectasia, cystic change and chronic inflammation. There is no ne w suspicious mammographic finding. There are few additional scattered benign calcifications. Sonographic imaging of the left breast demonstrates no suspicious finding at the site of palpable con cern at the 3:00 position. This is inferior to the location of prior biopsy. IMPRESSION: 1. Biopsy marker at the site of biopsy-proven stromal fibrosis, duct ectasia, cystic change and chron ic inflammation at the anterior 2:00 position. There are a few residual clustered microcalcification in this location status post biopsy. 2. No new suspicious mammographic or sonographic finding. 3. BI-RADS Category 2: Benign finding(s). The patient will be due for bilateral mammography in 5 jesse hs according to a previously established bilateral mammography interval. If your mammogram demonstrates that you have dense breast tissue, which could hide abnormalities, and if you have other risk factors for breast cancer that have been identified, you might benefit from s upplemental screening tests that may be suggested by your ordering physician. Dense breast tissue, i n and of itself, is a relatively common condition. This information is not provided to cause undue c oncern, but rather to raise your awareness and to promote discussion with your physician regarding th e presence of other risk factors, in addition to dense breast tissue. A report of your mammography re sults will be sent to you and your physician. You should contact your physician if you have any ques tions or concerns regarding this report. Mammography is a sensitive method for finding small breast cancers, but it does not detect them all a nd is not a substitute for careful clinical examination. A negative mammogram does not negate a clin ically suspicious finding and should not result in delay in biopsying a clinically suspicious abnorma lity. PQRS compliance statement - Patient information was entered into a reminder system with a target due date for the next mammogram. "Our facility is accredited by the [employer] Mammography Program." Electronically signed by: Marie Morris MD (09/18/2021 2:48 PM) [id number]
== END ==
LOC: MAMMO 13:46
PROVIDERS: ATTEND Family Medicine
DX: N60.42 Mammary duct ectasia of left breast (principal); N63.21 Unspecified lump in the left breast, upper outer quadrant; N60.32 Fibrosclerosis of left breast; R92.2 Inconclusive mammogram
CPT/HCPCS: 76642; 77065; G0279; 77061

== ENCOUNTER → 2021-10-10 | Outpatient (CLI) | payer MEDICARE, OTHER ==
--- NOTE | 2021-10-10 17:15 | RAD ---
INDICATION: Reason: PAIN, H/O KIDNEY STONES / Spl. Instructions: / History: COMPARISON: April 2020 TECHNIQUE: Axial CT images were obtained through the abdomen and pelvis without intravenous contrast. One or more of the following individualized dose reduction techniques were utilized for this examinat ion: 1. Automated exposure control; 2. Adjustment of the mA and/or kV according to patient size; 3 . Use of iterative reconstruction technique. FINDINGS: There is redemonstration of some groundglass and interstitial opacities at the lung bases with periph eral reticulation. Vascular: Calcific atherosclerosis. Hepatobiliary: Postcholecystectomy changes. Pancreas: Limited assessment of pancreas without contrast. Spleen: Unremarkable Renal/Bladder: Low-density thickening of the left greater the right adrenal gland. Could be from caus es such as hyperplasia or adenoma. Bilateral nonobstructive renal stones. Lobulated appearance of the kidneys. Urinary bladder is largely decompressed. No significant hydronephrosis. Gastrointestinal: Colonic diverticulosis. There is some rotation of the mesentery just to the left of midline within the pelvis. There is a couple of mildly prominent loops of small bowel but no high-gr pretty transition point to suggest obstruction at this time. Osseous demineralization. Degenerative changes of the spine with multilevel central canal and neural foraminal stenosis. Degenerative changes of the hips. Stimulator leads seen in central canal. IMPRESSION: * Bilateral nonobstructive renal stones without hydronephrosis. * There is some rotation of the mesentery within the lower abdomen and pelvis on the left which can be seen with a partial mesenteric volvulus. There is no definite associated obstruction at this time but if the patient's symptoms increase or persist a follow-up could be obtained to ensure that there is not progression into an obstruction given this mesenteric finding. Electronically signed by: Daniel Richter MD (10/10/2021 5:13 PM) [id number]
== END ==
LOC: RAD 16:31
PROVIDERS: ATTEND Family Medicine
DX: N20.0 Calculus of kidney (principal); R91.8 Other nonspecific abnormal finding of lung field; E27.9 Disorder of adrenal gland, unspecified; K57.30 Diverticulosis of large intestine without perforation or abscess without bleeding; M81.8 Other osteoporosis without current pathological fracture; N23 Unspecified renal colic; M16.0 Bilateral primary osteoarthritis of hip; Z90.49 Acquired absence of other specified parts of digestive tract
CPT/HCPCS: 74176

== ENCOUNTER 2021-11-29 17:37 | Emergency (ER) | payer MEDICARE, OTHER ==
[~2021-11-29] VITALS: Ht 144.8 cm; Wt 45.9 kg
--- NOTE | 2021-11-29 18:11 | PHYS DOC ---
Past History Past Medical History: Anxiety, COPD, Dementia, Depression, Other Additional Past Medical Histor: CHRONIC PAIN Past Surgical History: Cholecystectomy, Hysterectomy Additional Past Surgical Histo: BILATERAL ROTATOR, NERUO IMPLANT DEVICE, NECK/BACK Alcohol Use: None General Adult EDM: Chief Complaint: COUGH HPI: HPI: Patient is a 66 year old female who presents with above hx and complaints of coughing. Pt. seen in Waiting room - no beds available in ED. Pt. normally follows with Dr. Monreal. Pt. states she has been coughng for four weeks. Pt. states the coughing has been so bad she had to reduce her smoking. Patient reportedly has had COVID vaccination and flu vaccination this season. Patient denies any recent travel. Patient denies any severe ill contacts. Patient only follows Dr. Monreal. Patient denies any significant heart history however was told that she had a previous heart dysrhythmia however she never did follow-up at up. Patient states the cough has been nonproductive. She does have chronic right shoulder pain from prior shoulder surgery. Patient did have a laminectomy of neck and placement of stimulator for chronic neck and back pain. Patient does have a past medical history of anxiety, dementia, depression, bipolar disorder, bilateral lower Tatar cuff injuries, chronic pain, and deconditioning. Patient has not been on any steroids or antibiotics recently. Review of Systems: Review of Systems: Constitutional: Denies fever or chills Eyes: Denies change in visual acuity HENT: Denies nasal congestion or sore throat Respiratory: Denies cough or shortness of breath Cardiovascular: Denies chest pain or edema GI: Denies abdominal pain, nausea, vomiting, bloody stools or diarrhea : Denies dysuria Musculoskeletal: Denies back pain or joint pain Integument: Denies rash Neurologic: Denies headache, focal weakness or sensory changes Endocrine: Denies polyuria or polydipsia Lymphatic: Denies swollen glands Psychiatric: Denies depression or anxiety Family History: Family History: Noncontributory to current presentation Current Medications: Current Meds: See nursing for home meds Allergies: Allergies: Allergies Coded Allergies Type Severity Reaction Last Updated Verified varenicline Allergy Unknown 10/10/14 Yes Physical Exam: PE: Constitutional: Moderate acute distress, non-toxic appearance. [] HENT: Normocephalic, atraumatic, bilateral external ears normal, oropharynx moist, no oral exudates, nose normal. [] Eyes: PERRLA, EOMI, conjunctiva normal, no discharge. Glasses Neck: Normal range of motion, no tenderness, supple, no stridor. [] Cardiovascular:Heart rate regular rhythm, no murmur [] PMI slightly to the left Lungs & Thorax: Bilateral breath sounds equal at apex with scattered wheezing throughout auscultation [] Abdomen: Bowel sounds normal, soft, no tenderness, no masses, no pulsatile masses. Surgical scar Skin: Warm, dry, no erythema, no rash. Poor turgor Back: No tenderness, no CVA tenderness. Surgery scars Extremities: No tenderness, no cyanosis, no clubbing, ROM intact, no edema. Arthritic changes surgeries bilateral shoulders Neurologic: Alert and oriented X 3, is all extremities on request, does have distal sensory, no focal deficits noted. [] Psychologic: Affect anxious judgement normal, mood normal. [] EKG: EKG: My interpretation EKG shows a sinus rhythm at 67 bpm. Does have leftward axis. Nonspecific changes and the anterior lateral leads. But no findings acute STEMI of contralateral changes. Time of EKG is 1933 hrs. [] Radiology/Procedures: Radiology/Procedures: [][place] [address] IMAGING REPORT Signed PATIENT: TANYA TRIPP ACCOUNT: [id number] : 1955 LOCATION: ER AGE: 66 SEX: F EXAM STATUS: REG ER ORD. PHYSICIAN: ARGELIA TRIPP MD REASON: cough PROCEDURE: CHEST PA & LATERAL XR CHEST 2V History: Reason: cough / Spl. Instructions: / History: Comparison: February 14, 2021 Findings: No consolidation or pleural effusion. Normal heart size. No pneumothorax. Postop changes cervical spine. Spinal stimulator leads noted. Hyperinflation with chronic basilar reticular interstitial thickening. Impression: 1. Hyperinflation with bibasilar chronic reticular interstitial thickening. No new consolidation. Electronically signed by: Seven Clemente DO (11/29/2021 7:17 PM) [facility] DICTATED AND SIGNED BY: SEVEN CLEMENTE DO DATE: 11/29/211915 CC: KAREN MONREAL MD; ARGELIA TRIPP MD ~MTH0 0 Heart Score: C/O Chest Pain: No HEART Score for Chest Pain: HEART Score for Chest Pain Response (Comments) Value History Moderately Suspicious 1 ECG Nonspecific Repolarizatio 1 Age >45 - < 65 1 Risk Factors 1 or 2 Risk Factors 1 Troponin < Normal Limit 0 Total 4 Risk Factors: Risk Factors: DM, Current or recent (<one month) smoker, HTN, HLP, family history of CAD, obesity. Risk Scores: Score 0 - 3: 2.5% MACE over next 6 weeks - Discharge Home Score 4 - 6: 20.3% MACE over next 6 weeks - Admit for Clinical Observation Score 7 - 10: 72.7% MACE over next 6 weeks - Early Invasive Strategies Course & Med Decision Making: Course & Med Decision Making Pertinent Labs and Imaging studies reviewed. (See chart for details) Stop smoking. Take Azithromax 250 daily. Take Prednisone 50 x 5 days. Use MDI two puffs four times a day. Follow up with primary. Return if any concerns. 1. Bronchitis 2. Upper airway infection 3. Reactive Airway 4. Atelectasis versus infiltrate basilar lung mota. Dragon Disclaimer: Dragon Disclaimer: This electronic medical record was generated, in whole or in part, using a voice recognition dictation system. Departure Departure: Referrals: KAREN MONREAL MD (PCP) Scripts Azithromycin (ZITHROMAX) 250 Mg Tablet 250 MG PO DAILY for ANTI-BIOTIC for 5 Days, #5 TAB 0 Refills Prov: ARGELIA TRIPP MD 11/29/21 Prednisone (PREDNISONE) 50 Mg Tablet 50 MG PO DAILY for bronchitis for 5 Days, #5 TAB Prov: ARGELIA TRIPP MD 11/29/21 Dragon Disclaimer This chart was dictated in whole or in part using Voice Recognition software in a busy, high-work load, and often noisy Emergency Department environment. It may contain unintended and wholly unrecognized errors or omissions. ARGELIA TRIPP MD Nov 29, 2021 18:11
[2021-11-29] MEDS ORDERED: IV RINGERS SOLUTION,LACTATED 1,000 ML IV SCH (18:15)
[2021-11-29] MEDS ORDERED: ALBUTEROL SULFATE 8GM INHALER. INH ONE ×2 (18:15→20:15)
[2021-11-29 18:53] LABS: BASO % 1 % (0-3); EOS # 0.1 x10^3/uL (0.0-0.7); EOS % 1 % (0-3); HEMATOCRIT 44.6 % (36.0-47.0); HEMOGLOBIN 15.1 g/dL (12.0-15.5); LYMPH # 2.7 x10^3/uL (1.0-4.8); LYMPH % 38 % (24-48); MEAN CORPUSCULAR HEMOGLOBIN 34 pg (25-35); MEAN CORPUSCULAR HGB CONC 34 g/dL (31-37); MEAN CORPUSCULAR VOLUME 101 fL (79-100); MONO # 0.5 x10^3/uL (0.0-1.1); MONO % 8 % (0-9); NEUT # 3.8 x10^3uL (1.8-7.7); NEUT % 53 % (31-73); PLATELET COUNT 237 x10^3/uL (140-400); RED BLOOD COUNT 4.41 x10^6/uL (3.50-5.40); RED CELL DISTRIBUTION WIDTH 12.8 % (11.5-14.5); WHITE BLOOD COUNT 7.2 x10^3/uL (4.0-11.0)
[2021-11-29 19:11] LABS: CALCIUM 8.8 mg/dL (8.5-10.1); CREATININE 0.8 mg/dL (0.6-1.0); GFR 72.2; POTASSIUM 3.8 mmol/L (3.5-5.1)
[2021-11-29 19:12] LABS: INFLUENZA A PATIENT NEGATIVE (NEGATIVE); INFLUENZA B PATIENT NEGATIVE (NEGATIVE)
--- NOTE | 2021-11-29 19:19 | RAD ---
XR CHEST 2V History: Reason: cough / Spl. Instructions: / History: Comparison: February 14, 2021 Findings: No consolidation or pleural effusion. Normal heart size. No pneumothorax. Postop changes cervical spi ne. Spinal stimulator leads noted. Hyperinflation with chronic basilar reticular interstitial thicken ing. Impression: 1. Hyperinflation with bibasilar chronic reticular interstitial thickening. No new consolidation. Electronically signed by: Seven Clemente DO (11/29/2021 7:17 PM) [facility]
[2021-11-29 19:26] LABS: DIRECT BILIRUBIN 0.1 mg/dL (0.0-0.2); MAGNESIUM 2.1 mg/dL (1.8-2.4); TOTAL BILIRUBIN 0.2 mg/dL (0.2-1.0); TOTAL PROTEIN 7.5 g/dL (6.4-8.2)
--- NOTE | 2021-11-29 19:50 | EKG ---
[address] [address] Test Date: 2021-11-29 Test Time: 19:33:42 Pat Name: TANYA TRIPP Department: Room: Gender: F Striper: : 1955 Requested By: ARGELIA TRIPP Order Number: [id number] Reading MD: Miguel Angel Mcfarlane Measurements Intervals [place] Rate: 67 P: 36 [place]: 148 QRS: -5 QRSD: 82 T: 34 QT: 386 QTc: 411 Interpretive Statements SINUS RHYTHM LEFTWARD AXIS Electronically Signed On 11-30-2021 18:31:32 TECHNICAL OPERATIONS MANAGER by Miguel Angel Mcfarlane
[2021-11-29] MEDS ORDERED: AZITHROMYCIN 250 MG TABLET. PO ONE (20:15)
[2021-11-29] MEDS ORDERED: methylPREDNISolone SOD SUCC PF 125 MG/2 ML VIAL. IV ONE (20:15)
[2021-11-29 20:58] LABS: BACTERIA,URINE FEW /HPF (0-FEW); CLARITY,URINE CLEAR; COLOR,URINE YELLOW; GLUCOSE,URINE NEG (NEG); NITRITE,URINE NEG (NEG); UROBILINOGEN,URINE 0.2 mg/dL (0.2 mg/dL)
[2021-11-29 20:59] LABS: HYALINE CASTS, URINE FEW /HPF; SQUAMOUS EPITHELIAL CELL,UR MOD /LPF
[2021-11-29] MEDS ORDERED: PRED50TA PO (21:32)
[2021-11-29] MEDS ORDERED: AZIT250T PO (21:32)
[2021-11-29 22:25] VITALS: BP 117/66
== END 2021-11-29 22:25 | disposition home or self-care (01) ==
LOC: ER 17:37
DX: J45.909 Unspecified asthma, uncomplicated (principal); J06.9 Acute upper respiratory infection, unspecified; J44.9 Chronic obstructive pulmonary disease, unspecified; F03.90 Unspecified dementia, unspecified severity, without behavioral disturbance, psychotic disturbance, mood disturbance, and anxiety; G89.29 Other chronic pain; F41.9 Anxiety disorder, unspecified; Z20.822 Contact with and (suspected) exposure to COVID-19; Z88.1 Allergy status to other antibiotic agents
CPT/HCPCS: 36415; 71046; 80048; 80076; 81001; 82550; 83690; 83735; 83880; 84443; 84484; 85025; 85379; 85730; 87428; 93005; 94640; 96361; 96374; 99285; J2930; J7120; 94664